=== PATIENT | female | born 1945 | race Caucasian/White ===

== ENCOUNTER → 2019-10-05 | Outpatient (CLI) | payer MEDICARE ==
--- NOTE | 2019-10-05 10:10 | NUR ---
MBSS COMPLETED NO ASPIRATION; TRANSIENT PENETRATION WITH THIN VIA STRAW AT THIS TIME. RECOMMEND REGULAR SOLIDS, THIN LIQUID (NO STRAW), PILLS WHOLE WITH LIQUIDS TOLERATED. PANEL MACHINE SETTER REVIEWED RESULTS AND RECOMMENDATIONS WITH Pt. PANEL MACHINE SETTER EDUCATED Pt ON RISKS AND CONSEQUENCES OF ASPIRATION. ALL QUESTIONS ANSWERED AT THIS TIME. Addendum: 10/05/[address] ANASTACIA DARNELL Amended: Links added.
== END | disposition home or self-care (01) ==
LOC: RAH 09:29
PROVIDERS: ATTEND Internal Medicine
DX: R13.13 Dysphagia, pharyngeal phase (principal); R63.3 Feeding difficulties; K22.8 Other specified diseases of esophagus; K29.00 Acute gastritis without bleeding; K57.00 Diverticulitis of small intestine with perforation and abscess without bleeding

== ENCOUNTER 2023-10-06 12:44 | Emergency (ER) | payer MEDICARE ==
[~2023-10-06 12:44] MED LIST: CEPH500B PO; CINA60TA4 PO
[2023-10-06 13:39] LABS: ADD UA MICROSCOPIC YES; APPEARANCE,URINE CLOUDY (CLEAR); BILIRUBIN,URINE NEGATIVE (NEGATIVE); COLOR,URINE YELLOW (YELLOW); GLUCOSE, URINE (UA) NEGATIVE (NEGATIVE); KETONES,URINE NEGATIVE (NEGATIVE); LEUKOCYTE ESTERASE ,URINE 500 Leu/uL (NEGATIVE); NITRATE,URINE 2+ (NEGATIVE); PROTEIN,URINE NEGATIVE (NEGATIVE); UROBILINOGEN,URINE 0.2 mg/dL (0.2-1.0)
[2023-10-06] MEDS: IBUPROFEN 800 MG TAB PO ONE (13:40)
[2023-10-06] MEDS: DEXAMETHASONE SOD PHOSPHATE 4 MG/ML 1ML VIAL IM ONE (13:40)
[2023-10-06] MEDS: CYCLOBENZAPRINE HCL 10 MG TABLET PO ONE (13:41)
[2023-10-06 13:42] LABS: BACTERIA,URINE MANY /HPF (None Seen); MUCUS,URINE RARE LPF (None Seen); SQUAMOUS EPITHELIAL CELL,UR RARE /HPF (0-2); WBC CLUMP FEW /HPF (0-1); WBC,URINE TNTC /HPF (0-1)
[2023-10-06 15:12] VITALS: BP 154/74; PULSE 76; RESP 16; O2SAT 98
[2023-10-06] MEDS ORDERED: METH4TAB3 PO (15:41)
[2023-10-06] MEDS ORDERED: OMEP40CA21 PO (15:41)
[2023-10-06] MEDS ORDERED: CYCL10TA16 PO (15:41)
[2023-10-06] MEDS ORDERED: IBUP-2077 PO (15:41)
[2023-10-06] MEDS: AMOX/CLAV 875/125MG TAB PO ONE (16:01)
== END 2023-10-06 16:23 | disposition home or self-care (01) ==
LOC: EDH 12:44
DX: N30.01 Acute cystitis with hematuria (principal); M47.817 Spondylosis without myelopathy or radiculopathy, lumbosacral region; Z90.49 Acquired absence of other specified parts of digestive tract; Z90.710 Acquired absence of both cervix and uterus
CPT/HCPCS: 99284; 87077; 87088; 87186; 81001; 72100; 96372; J1100

== ENCOUNTER → 2024-02-10 | Outpatient (CLI) | payer MEDICARE ==
[~2024-02-10] MED LIST changes: +CYCL10TA16 PO; +IBUP-2077 PO; +METH4TAB3 PO; +OMEP40CA21 PO
== END | disposition home or self-care (01) ==
LOC: RAH 08:10
PROVIDERS: ATTEND Internal Medicine
DX: M81.0 Age-related osteoporosis without current pathological fracture (principal)
CPT/HCPCS: 77080